=== PATIENT | female | born 1940 | race Caucasian/White ===

== ENCOUNTER 2016-09-03 14:10 | Inpatient (IN) | payer MEDICARE ==
[~2016-09-03 14:10] MED LIST: ADULT LOW DOSE81 MG PO; ALDACTONE25 M1 PO; ALLOPURINOL300 MG PO; ATORVASTATIN CA10 M1 PO; BL MAXEPA CAPSU1 CAP PO; BUMETANIDE0.5 M1 PO; CARDIZEM LA240 MG PO; CARTIA XT120 M1 PO; CENTRUM SILVER1 TA PO; CLINDAMYCIN HC300 M2 PO; CLOPIDOGREL75 M1 PO; COLACE100 M1 PO; COLCHICINE0.6 M3 PO; COUMADIN1 M1 PO; COUMADIN4 MG PO; COUMADIN5 M2 PO; COUMADIN5 MG PO; COUMADIN6 M1 PO; CPAP; CYCLOBENZAPRINE5 M1 PO; DEMADEX20 M1 PO; DULERA 200 MCG/13 G1 INH; ENALAPRIL MALEA20 MG; ENALAPRIL MALEA20 MG PO; ENTOCORT EC3 MG; EQL FISH OIL 1,1 CA1 PO; FEROSUL325 M1 PO; FLAGYL500 MG PO; GABAPENTIN400 M3 PO; HYDROCHLOROTHIA25 M1 PO; HYDROCHLOROTHIA25 MG PO; HYDROCODON-ACE1 EA15 PO; HYDROCODON-ACE1 EA16 PO; HYDROXYZINE HCL25 MG PO; INDOCIN50 MG PO; IRON325 M3 PO; LASIX40 M1 PO; LASIX80 M1 PO; LEVAQUIN500 MG PO; LEXAPRO10 M2 PO; LIDODERM700 MG TP; LOVENOX120 MG/0.8 SQ; LOVENOX150 MG/ML SQ; METOPROLOL TART25 MG; MILK OF MAGNESIA PO; MULTAQ400 MG PO; MULTIVITAMIN1 TAB PO; NEURONTIN300 M1 PO; NEURONTIN400 M1 PO; NORCO 10/3251 TAB PO; NORCO 5-325 TA1 EACH PO; NORCO PO; OXYGEN; PLAVIX75 M1 PO; POTASSIUM CHLO10 ME1 PO; POTASSIUM CHLO10 ME2 PO; POTASSIUM CHLO20 ME3 PO; PRADAXA150 M1 PO; PRADAXA75 M1 PO; PREDNISONE10 MG PO; PROTONIX40 M2 PO; PROVENTIL HFA6.7 G1; SIMVASTATIN20 M1 PO; SPIRIVA18 MCG IH; SYMBICORT; SYMBICORT 160-4.6 GM IH; TOPROL XL50 MG PO; TRAMADOL HCL50 M1 PO; TRAMADOL HCL50 M2 PO; TRAMADOL HCL50 MG PO; TRIAMCINOLONE A15 G1 TOP; TYLENOL325 M2 PO; WARFARIN SODIUM4 MG PO; ZEBETA5 M2 PO; ZEBETA5 MG PO; ZESTRIL2.5 M3 PO; ZOCOR20 M1 PO; ZOCOR20 MG PO; ZOLPIDEM TARTRA10 M1 PO; ZOLPIDEM TARTRA10 M2 PO; ZYLOPRIM300 M1 PO; gabapentin
[2016-09-03] MEDS ORDERED: SPIRIVA18 MC1 INH (14:25)
[2016-09-03 14:55] LABS: BASO % 0.5 % (0-2); EOS % 1.3 % (0-7); EOSINOPHIL ABSOLUTE COUNT 0.1 tho/cmm (0.0-0.7); HCT-HEMATOCRIT 26.1 % (34.0-49.0); HGB-HEMOGLOBIN 7.6 gm/dl (12.0-15.5); IMMATURE GRANULOCYTES ABSOLUTE 0.01 tho/cmm (0-0.03); IMMATURE GRANULOCYTES PERCENT 0.1 % (0-0.3); LYMPH % 9.2 % (20-45); LYMPH ABSOLUTE COUNT 0.8 tho/cmm (0.8-4.5); MCH (MEAN CORPUSCULAR HGB) 28.1 pg (28.0-32.0); MCHC MEAN CORPUSCULAR HGB CONC 29.1 % (32.0-36.0); MCV (MEAN CELL VOLUME) 96.7 fl (82.0-96.0); MEAN PLATELET VOLUME 9.8 cmc (9.4-12.4); MONOCYTE ABSOLUTE COUNT 0.9 tho/cmm (0.0-1.2); NEUTROPHIL ABSOLUTE COUNT 6.5 tho/cmm (1.6-8.0); NEUTROPHIL-AUTOMATED 6.5 tho/cmm (1.6-8.0); NEUTROPHILS % 77.9 % (40-80); PLATELET COUNT 254 tho/cmm (150-450); WHITE BLOOD COUNT 8.3 tho/cmm (4.0-10.0)
[2016-09-03 14:57] LABS: INR 1.1 INR (0.9-1.1); PROTHROMBIN TIME 12.5 SECONDS (9.0-13.6)
[2016-09-03 15:18] LABS: ALB/GLOB RATIO 0.9 (0.8-2.0); ALBUMIN 3.4 g/dl (3.5-5.0); ALCOHOL (ETOH) <10 mg/dl (<10); ALKALINE PHOSPHATASE 123 U/L (33-138); ALT/SGPT 16 U/L (12-78); BILIRUBIN,TOTAL 0.5 mg/dl (0-1.5); BLOOD UREA NITROGEN 60 mg/dl (6-24); CALCIUM 8.4 mg/dl (8.5-10.5); CARBON DIOXIDE-VENOUS 22 mmol/L (22-32); CHLORIDE 114 mmol/l (96-110); CREATININE 2.57 mg/dl (0.50-1.10); GLUCOSE 104 mg/dL (70-110); SODIUM 146 mmol/L (135-145); eGFR VALUE FOR BLACK 20 mL/Min
[2016-09-03 15:20] LABS: ANION GAP 16 mmol/L (0-20)
[2016-09-03 15:22] LABS: AST/SGOT 24 U/L (10-40)
[2016-09-03 15:24] LABS: URINE APPEARANCE CLEAR; URINE BILIRUBIN NEGATIVE (NEG); URINE BLOOD NEGATIVE (NEG); URINE COLOR PALE YELLOW; URINE GLUCOSE (UA) NEGATIVE (NEG); URINE KETONE NEGATIVE (NEG); URINE LEUKOCYTE ESTERASE NEGATIVE (NEG); URINE NITRITE NEGATIVE (NEG); URINE PROTEIN NEGATIVE (NEG); URINE SPECIFIC GRAVITY 1.015 (1.003-1.030)
[2016-09-03 15:27] LABS: ABG CO2 ARTERIAL 23 mmol/L (21-27); ARTERIAL BLD GAS O2 SATURATION 96 % (95-98); ARTERIAL BLOOD GAS PCO2 52 mmHg (32-45); ARTERIAL PO2 90 mmHg (70-100); BICARBONATE 22 mmol/L (21-28); BLOOD GAS BASE EXCESS -5 mM/L (-/+3); PH 7.24 Units (7.35-7.45)
[2016-09-03 15:40] LABS: URINE EPITHELIAL CELLS 0-1 /[HPF] (0-10); URINE RBC 0-1 /[HPF] (0-5); URINE WBC 0-1 /[HPF] (0-5)
[2016-09-03 17:57] LABS: ABG CO2 ARTERIAL 23 mmol/L (21-27); ARTERIAL BLD GAS O2 SATURATION 97 % (95-98); ARTERIAL BLOOD GAS PCO2 49 mmHg (32-45); ARTERIAL PO2 95 mmHg (70-100); BICARBONATE 21 mmol/L (21-28); BLOOD GAS BASE EXCESS -5 mM/L (-/+3); PH 7.26 Units (7.35-7.45)
[2016-09-03 23:05] LABS: IRON 19 ug/dl (37-170); IRON BINDING CAPACITY 331 ug/dl (250-450)
[2016-09-04 04:15] LABS: ANION GAP 13 mmol/L (0-20); BLOOD UREA NITROGEN 55 mg/dl (6-24); C-REACTIVE PROTEIN 1.5 mg/dl (0-0.9); CALCIUM 8.2 mg/dl (8.5-10.5); CARBON DIOXIDE-VENOUS 23 mmol/L (22-32); CHLORIDE 115 mmol/l (96-110); CREATININE 2.23 mg/dl (0.50-1.10); GLUCOSE 87 mg/dL (70-110); POTASSIUM 4.7 mmol/L (3.7-5.1); SODIUM 146 mmol/L (135-145); eGFR VALUE FOR BLACK 24 mL/Min
[2016-09-04 04:27] LABS: BASO % 0.8 % (0-2); BASO ABSOLUTE COUNT 0.1 tho/cmm (0.0-0.2); EOS % 1.9 % (0-7); EOSINOPHIL ABSOLUTE COUNT 0.1 tho/cmm (0.0-0.7); HCT-HEMATOCRIT 24.6 % (34.0-49.0); IMMATURE GRANULOCYTES ABSOLUTE 0.01 tho/cmm (0-0.03); IMMATURE GRANULOCYTES PERCENT 0.2 % (0-0.3); LYMPH % 15.3 % (20-45); MCH (MEAN CORPUSCULAR HGB) 27.5 pg (28.0-32.0); MCV (MEAN CELL VOLUME) 96.5 fl (82.0-96.0); MEAN PLATELET VOLUME 9.3 cmc (9.4-12.4); MONO % 10.2 % (0-12); MONOCYTE ABSOLUTE COUNT 0.6 tho/cmm (0.0-1.2); NEUTROPHIL ABSOLUTE COUNT 4.4 tho/cmm (1.6-8.0); NEUTROPHIL-AUTOMATED 4.4 tho/cmm (1.6-8.0); NEUTROPHILS % 71.6 % (40-80); PLATELET COUNT 209 tho/cmm (150-450); RED BLOOD COUNT 2.55 mil/cmm (4.00-5.20); RED CELL DISTRIBUTION WIDTH 17.9 % (12.4-16.4); WHITE BLOOD COUNT 6.2 tho/cmm (4.0-10.0)
[2016-09-04 04:30] LABS: MCHC MEAN CORPUSCULAR HGB CONC <29.0 % (32.0-36.0)
[2016-09-04 14:20] LABS: TSH-THYROID STIMULATING HORM. 1.87 uIU/ml (0.40-3.80)
[2016-09-05 05:31] LABS: BASO % 0.3 % (0-2); EOS % 1.4 % (0-7); EOSINOPHIL ABSOLUTE COUNT 0.1 tho/cmm (0.0-0.7); HGB-HEMOGLOBIN 8.7 gm/dl (12.0-15.5); IMMATURE GRANULOCYTES ABSOLUTE 0.03 tho/cmm (0-0.03); IMMATURE GRANULOCYTES PERCENT 0.4 % (0-0.3); LYMPH % 14.4 % (20-45); LYMPH ABSOLUTE COUNT 1.1 tho/cmm (0.8-4.5); MCH (MEAN CORPUSCULAR HGB) 28.1 pg (28.0-32.0); MCV (MEAN CELL VOLUME) 93.5 fl (82.0-96.0); MEAN PLATELET VOLUME 9.4 cmc (9.4-12.4); MONO % 11.5 % (0-12); MONOCYTE ABSOLUTE COUNT 0.9 tho/cmm (0.0-1.2); NEUTROPHIL ABSOLUTE COUNT 5.7 tho/cmm (1.6-8.0); NEUTROPHIL-AUTOMATED 5.7 tho/cmm (1.6-8.0); PLATELET COUNT 200 tho/cmm (150-450); RED CELL DISTRIBUTION WIDTH 18.6 % (12.4-16.4); WHITE BLOOD COUNT 7.8 tho/cmm (4.0-10.0)
[2016-09-05 05:43] LABS: ALBUMIN 3.2 g/dl (3.5-5.0); ANION GAP 15 mmol/L (0-20); BLOOD UREA NITROGEN 43 mg/dl (6-24); CALCIUM 8.3 mg/dl (8.5-10.5); CARBON DIOXIDE-VENOUS 22 mmol/L (22-32); CHLORIDE 112 mmol/l (96-110); GLUCOSE 115 mg/dL (70-110); PHOSPHOROUS 3.1 mg/dl (2.5-4.9); POTASSIUM 4.6 mmol/L (3.7-5.1); SODIUM 144 mmol/L (135-145); eGFR VALUE FOR BLACK 27 mL/Min
[2016-09-05 06:46] LABS: URINE BILIRUBIN NEGATIVE (NEG); URINE BLOOD NEGATIVE (NEG); URINE GLUCOSE (UA) NEGATIVE (NEG); URINE KETONE NEGATIVE (NEG); URINE LEUKOCYTE ESTERASE NEGATIVE (NEG); URINE NITRITE NEGATIVE (NEG); URINE PROTEIN NEGATIVE (NEG)
[2016-09-05 06:48] LABS: URINE APPEARANCE CLEAR; URINE COLOR YELLOW
[2016-09-05 07:10] LABS: URINE TOTAL PROTEIN-RANDOM 12.5 mg/dl (<11.8)
[2016-09-05 07:38] LABS: ABG CO2 ARTERIAL 23 mmol/L (21-27); ARTERIAL BLD GAS O2 SATURATION 97 % (95-98); ARTERIAL BLOOD GAS PCO2 46 mmHg (32-45); ARTERIAL PO2 89 mmHg (70-100); BICARBONATE 21 mmol/L (21-28); BLOOD GAS BASE EXCESS -4 mM/L (-/+3); PH 7.29 Units (7.35-7.45)
[2016-09-06 05:46] LABS: BASO % 0.3 % (0-2); EOS % 3.5 % (0-7); EOSINOPHIL ABSOLUTE COUNT 0.2 tho/cmm (0.0-0.7); HCT-HEMATOCRIT 27.4 % (34.0-49.0); HGB-HEMOGLOBIN 8.2 gm/dl (12.0-15.5); IMMATURE GRANULOCYTES ABSOLUTE 0.02 tho/cmm (0-0.03); IMMATURE GRANULOCYTES PERCENT 0.3 % (0-0.3); LYMPH % 13.8 % (20-45); LYMPH ABSOLUTE COUNT 0.9 tho/cmm (0.8-4.5); MCH (MEAN CORPUSCULAR HGB) 28.1 pg (28.0-32.0); MCHC MEAN CORPUSCULAR HGB CONC 29.9 % (32.0-36.0); MCV (MEAN CELL VOLUME) 93.8 fl (82.0-96.0); MEAN PLATELET VOLUME 9.8 cmc (9.4-12.4); MONO % 13.4 % (0-12); MONOCYTE ABSOLUTE COUNT 0.9 tho/cmm (0.0-1.2); NEUTROPHIL ABSOLUTE COUNT 4.5 tho/cmm (1.6-8.0); NEUTROPHIL-AUTOMATED 4.5 tho/cmm (1.6-8.0); NEUTROPHILS % 68.7 % (40-80); PLATELET COUNT 183 tho/cmm (150-450); RED BLOOD COUNT 2.92 mil/cmm (4.00-5.20); RED CELL DISTRIBUTION WIDTH 18.6 % (12.4-16.4); WHITE BLOOD COUNT 6.5 tho/cmm (4.0-10.0)
[2016-09-06 06:01] LABS: ANION GAP 12 mmol/L (0-20); BLOOD UREA NITROGEN 39 mg/dl (6-24); CALCIUM 8.5 mg/dl (8.5-10.5); CARBON DIOXIDE-VENOUS 23 mmol/L (22-32); CHLORIDE 111 mmol/l (96-110); CREATININE 1.76 mg/dl (0.50-1.10); GLUCOSE 106 mg/dL (70-110); MAGNESIUM 2.2 mg/dl (1.8-2.6); PHOSPHOROUS 3.1 mg/dl (2.5-4.9); POTASSIUM 4.3 mmol/L (3.7-5.1); SODIUM 142 mmol/L (135-145); eGFR VALUE FOR BLACK 32 mL/Min
[2016-09-07 06:02] LABS: ALBUMIN 2.9 g/dl (3.5-5.0); ANION GAP 12 mmol/L (0-20); BLOOD UREA NITROGEN 36 mg/dl (6-24); CALCIUM 8.3 mg/dl (8.5-10.5); CARBON DIOXIDE-VENOUS 23 mmol/L (22-32); CHLORIDE 113 mmol/l (96-110); CREATININE 1.69 mg/dl (0.50-1.10); GLUCOSE 115 mg/dL (70-110); PHOSPHOROUS 2.9 mg/dl (2.5-4.9); POTASSIUM 4.1 mmol/L (3.7-5.1); SODIUM 144 mmol/L (135-145); eGFR VALUE FOR BLACK 34 mL/Min
[2016-09-07] MEDS ORDERED: NYATA15 GM TOP (18:50)
[2016-09-07] MEDS ORDERED: TYLENOL325 M2 PO (18:52)
== END 2016-09-07 19:20 | DRG 682 ==
LOC: EDMED 14:10 → EMR2 17:29 → PCUB 19:44
PROVIDERS: Emergency Medicine; Internal Medicine; Internal Medicine Critical Care Medicine; Internal Medicine Nephrology; ADMIT Family Medicine
PROC: 0DJ08ZZ Inspection of Upper Intestinal Tract, Via Natural or Artificial Opening Endoscopic (ICD-10-PCS; principal; 2016-09-04)
PROC: 30233N1 Transfusion of Nonautologous Red Blood Cells into Peripheral Vein, Percutaneous Approach (ICD-10-PCS; 2016-09-04)
PROC: 30233N1 Transfusion of Nonautologous Red Blood Cells into Peripheral Vein, Percutaneous Approach (ICD-10-PCS; 2016-09-04)
DX: N17.9 Acute kidney failure, unspecified (principal); J96.21 Acute and chronic respiratory failure with hypoxia; G92 Toxic encephalopathy; E87.2 Acidosis; J96.22 Acute and chronic respiratory failure with hypercapnia; I13.0 Hypertensive heart and chronic kidney disease with heart failure and stage 1 through stage 4 chronic kidney disease, or unspecified chronic kidney disease; I50.32 Chronic diastolic (congestive) heart failure; E87.5 Hyperkalemia; N18.9 Chronic kidney disease, unspecified; K57.90 Diverticulosis of intestine, part unspecified, without perforation or abscess without bleeding; I35.0 Nonrheumatic aortic (valve) stenosis; I48.91 Unspecified atrial fibrillation; G47.33 Obstructive sleep apnea (adult) (pediatric); E66.01 Morbid (severe) obesity due to excess calories; J44.9 Chronic obstructive pulmonary disease, unspecified; E66.9 Obesity, unspecified; I48.2 Chronic atrial fibrillation; M48.00 Spinal stenosis, site unspecified; M10.9 Gout, unspecified; E61.1 Iron deficiency; R29.6 Repeated falls; Z88.1 Allergy status to other antibiotic agents; Z99.81 Dependence on supplemental oxygen; Z88.0 Allergy status to penicillin; Z88.2 Allergy status to sulfonamides; Z91.048 Other nonmedicinal substance allergy status
CPT/HCPCS: G0480; J0610; J1940; J7030; P9016; P9612